=== PATIENT | male | born 1985 | race Caucasian/White ===

== ENCOUNTER 2016-10-07 18:46 | Emergency (ER) | payer MEDICARE, OTHER ==
[~2016-10-07] VITALS: Ht 177.8 cm; Wt 72.0 kg
[2016-10-07] MEDS ORDERED: NALOXONE (0.4 MG/ML) INJ IV STA (18:48)
[2016-10-07] MEDS ORDERED: SOD CHLORIDE 0.9% 1,000 ML IV STA (18:48)
[2016-10-07 19:03] VITALS: Ht 177.8 cm; Wt 72.0 kg
[2016-10-07] MEDS ORDERED: NALOXONE (0.4 MG/ML) INJ IV ONE (20:00)
[2016-10-07 20:42] VITALS: BP 153/103; PULSE 78; RESP 16
--- NOTE | 2016-10-07 21:00 | ERD ---
ER Documentation Chief Complaint Date/Time DATE: 10/07/16 TIME: 20:57 Chief Complaint Drug Imgestion s/s to heroin HPI This is a 31-year-old male who presents to the emergency room after being brought in by [employer] for evaluation of heroin ingestion. The patient was given intramuscular Narcan with moderate relief of his symptoms. He does state that he smoked heroin. The patient denies any other drug use, denies homicidal suicidal ideation and came to the ER for evaluation. ROS All systems reviewed and are negative except as per history of present illness. PMhx/Soc Medical and Surgical Hx: pt denies Medical Hx, pt denies Surgical Hx Hx Alcohol Use: Yes Hx Substance Use: Yes Hx Tobacco Use: Yes Smoking Status: Current every day smoker Physical Exam Vitals Vital Signs Date Time Temp Pulse Resp B/P Pulse Ox O2 Delivery O2 Flow Rate FiO2 10/07/16 20:42 78 16 153/103 100 Room Air 10/07/16 19:03 98.3 79 12 150/107 100 Physical Exam INITIAL VITAL SIGNS: Reviewed by me GENERAL: The patient is well developed and appropriate for usual state of health in no apparent distress HEENT: Pupils equal, round, and reactive to light. EOMI. There is no scleral icterus. NECK: C-spine is soft and supple, there is no meningismus. There is no cervical lymphadenopathy. LUNGS: Clear to auscultation bilaterally. There are no rales, wheezes or rhonchi. HEART: Regular rate and rhythm, no murmurs, clicks, rubs or gallops. ABDOMEN: Soft, non-tender, non-distended. There are bowel sounds in all four quadrants. No rebound or guarding. EXTREMITIES: There is no peripheral cyanosis or edema. No focal swelling or erythema. NEUROLOGICAL: The patient moves all four extremities with 5/5 strength. Cranial nerves II - XII are intact. Normal gait. Alert and oriented to person place and time SKIN: There is no apparent rash or petechiae. HEME/LYMPHATIC: There is no evidence of excessive bruising or lymphedema. PSYCHIATRIC: The patient has an agitated affect Results 24 hrs Current Medications Medications (Trade) Dose Ordered Sig/Piotr Route PRN Reason Start Time Stop Time Status Last Admin Dose Admin Naloxone HCl 0.4 mg 0.4 mg ONCE STAT IV 10/07/16 18:48 10/07/16 18:50 DC 10/07/16 18:53 Sodium Chloride (NS) 1,000 ml @ 1,000 mls/hr Q1H STAT IV 10/07/16 18:48 10/07/16 19:47 DC 10/07/16 18:53 Naloxone HCl (Narcan) 0.4 mg ONCE ONCE IV 10/07/16 20:00 10/07/16 20:01 DC 10/07/16 20:07 Procedures/MDM EKG: Rate/Rhythm: [Normal Sinus Rhythm] QRS, ST, T-waves: [No changes consistent w/ acute ischemia] Impression: [No evidence of ischemia or arrhythmia] This 31-year-old male presents to the ER for evaluation of drug use. This patient does admit to smoking heroin. The patient was given intramuscular Narcan was transported to the emergency room. When I saw him he was alert however he did appear to be under the influence of opiates. He was given 0.8 mg total of Narcan. The patient is alert and oriented at this time. He will be discharged home when he is clinically sober Departure Diagnosis: Primary Impression: Drug use Additional Impression: Heroin abuse Condition: Stable RORYRACHEAL DAYRENATO PLUMMER Oct 07, 2016 21:00
== END 2016-10-07 21:40 | disposition home or self-care (01) ==
LOC: E/R 18:46
DX: F11.10 Opioid abuse, uncomplicated (principal); R40.2132 Coma scale, eyes open, to sound, at arrival to emergency department; F17.210 Nicotine dependence, cigarettes, uncomplicated; R40.2362 Coma scale, best motor response, obeys commands, at arrival to emergency department; R40.2252 Coma scale, best verbal response, oriented, at arrival to emergency department
CPT/HCPCS: 93005; 96361; 96374; 96376; 99284; J2310; J7030